=== PATIENT | female | born 1955 | race African-American/Black ===

== ENCOUNTER 2016-10-05 10:48 | Outpatient (CLI) | payer OTHER ==
[~2016-10-05] VITALS: Ht 172.8 cm; Wt 77.3 kg
[~2016-10-05 10:48] MED LIST: ALLEGRA30 MG PO; AMLODIPINE10 MG PO; AMOXICILLIN 50500 MG PO; ASPIRIN 81M81 MG/TA2 PO; B-12 250 MCG PO; BACTRIM DS 8001 TAB PO; CEPHALEXIN500 M1 PO; COZAAR 50MG50 MG/TAB PO; FEXOFENADINE180 MG PO; HCTZ; HCTZ 25MG25 MG PO; MULTIVITAMIN FO1 CAP PO; NATURAL E400 IU PO; NORVASC 10MG10 MG PO; NORVASC5 MG PO; PREDNISONE 5MG5 MG PO; SYNTHROID0.075 MG/T PO; THE MEDICINE S300 M1 PO; VITAMIN D1000 IU PO; VITAMIN E1000 U/CAP PO; ZYRTEC10 M1 PO; ZYRTEC5 M1 PO
[2016-10-05] MEDS ORDERED: ZYRTEC ALLERGY10 MG PO (11:07)
[2016-10-05] MEDS ORDERED: FLONASE NASAL S16 GM NS (11:07)
[2016-10-05 11:08] VITALS: BP 142/77; PULSE 114; TEMP 98
== END 2016-10-05 14:12 | disposition home or self-care (01) ==
LOC: EUO 10:48
DX: I63.9 Cerebral infarction, unspecified (principal)
CPT/HCPCS: C1764

== ENCOUNTER → 2017-07-01 | Outpatient (CLI) | payer OTHER ==
[~2017-07-01] MED LIST changes: +FLONASE NASAL S16 GM NS; +ZYRTEC ALLERGY10 MG PO
== END ==
LOC: MC.RAD 08:20
DX: Z12.31 Encounter for screening mammogram for malignant neoplasm of breast (principal)

== ENCOUNTER 2018-08-13 15:59 | Emergency (ER) | payer MEDICARE ==
[~2018-08-13] VITALS: Ht 170.2 cm; Wt 78.6 kg
[2018-08-13 16:10] VITALS: TEMP 98.8
[2018-08-13 16:55] LABS: BASO # 0.1 (0.0-0.2); EOS # 0.1 (0.0-0.7); GRAN # 2.7 (1.4-6.5); GRAN % 54.3 % (42.2-75.2); HEMATOCRIT 39.7 % (37.0-47.0); HEMOGLOBIN 13.5 g/dl (12.5-16.0); LYMPH # 1.9 (1.2-3.4); LYMPH % 36.9 % (20.0-51.0); MEAN CELL VOLUME 84 fl (80.0-100.0); MEAN CORPUSCULAR HEMOGLOBIN 28 pg (27.0-31.0); MEAN CORPUSCULAR HGB CONC 34 g/dl (33.0-37.0); MEAN PLATELET VOLUME 10.9 fl (7.4-10.4); MONO # 0.3 (0.1-0.6); MONO % 5.6 % (1.7-9.3); PLATELET COUNT 215 K/mm3 (130-400); RED BLOOD COUNT 4.75 M/mm3 (4.10-5.30); REDCELL DISTRIBUTION WIDTH-CV 13.3 % (11.5-14.5)
[2018-08-13 17:11] LABS: ALANINE AMINOTRANSFERASE 28 U/L (9-52); ALKALINE PHOSPHATASE 95 U/L (50-136); ANION GAP 9 mmol/L (7-16); AST,SGOT 38 U/L (15-37); BILIRUBIN,TOTAL 0.5 mg/dL (0.0-1.0); BLOOD UREA NITROGEN 8 mg/dL (7-17); CALCIUM 10.6 mg/dL (8.4-10.2); CARBON DIOXIDE 28 mmol/L (22-30); CHLORIDE 106 mmol/L (98-107); CREATININE, serum 0.51 mg/dL (0.52-1.25); GLUCOSE 127 mg/dL (74-106); POTASSIUM 3.4 mmol/L (3.4-5.0); SODIUM 143 mmol/L (137-145)
[2018-08-13 17:27] LABS: TROPONIN-I < 0.012 ng/mL (0.000-0.034)
[2018-08-13 17:35] VITALS: BP 161/95; PULSE 101
[2018-08-13 17:36] LABS: COLLECTION METHOD CLEAN CATCH
[2018-08-13 17:52] LABS: MUCOUS Present /lpf; PH 7 (5-8); SQUAMOUS EPITHELIAL 0-2 /hpf; URINE APPEARANCE Clear; URINE BACTERIA None Seen /hpf; URINE BILIRUBIN Negative (NEGATIVE); URINE BLOOD Negative (NEGATIVE); URINE COLOR Yellow; URINE GLUCOSE Negative (NEGATIVE); URINE KETONE Negative (NEGATIVE); URINE LEUKOCYTE ESTERASE Negative (NEGATIVE); URINE NITRATE Negative (NEGATIVE); URINE PROTEIN(semi-quant) 2+ (NEGATIVE); URINE RBC 0-2 /hpf; URINE UROBILINOGEN Negative (NEGATIVE)
== END 2018-08-13 17:49 | disposition home or self-care (01) ==
LOC: COL.ER 15:59
PROVIDERS: Nurse Practitioner
DX: I10 Essential (primary) hypertension (principal); E07.9 Disorder of thyroid, unspecified; Z79.82 Long term (current) use of aspirin; Z88.0 Allergy status to penicillin
CPT/HCPCS: J7030

== ENCOUNTER → 2018-09-09 | Outpatient (CLI) | payer MEDICARE, OTHER | LOC: MC.RAD 07:04 | DX: Z12.31 Encounter for screening mammogram for malignant neoplasm of breast (principal); Z98.82 Breast implant status ==

== ENCOUNTER → 2019-09-10 | Outpatient (CLI) | payer MEDICARE, OTHER | LOC: MC.RAD 07:21 | DX: Z12.31 Encounter for screening mammogram for malignant neoplasm of breast (principal); R92.8 Other abnormal and inconclusive findings on diagnostic imaging of breast ==

== ENCOUNTER → 2020-12-01 | Outpatient (CLI) | payer MEDICARE, OTHER | LOC: MC.RAD 07:28 | DX: Z12.31 Encounter for screening mammogram for malignant neoplasm of breast (principal); Z98.82 Breast implant status ==

== ENCOUNTER 2022-01-20 04:55 | Emergency (ER) | payer MEDICARE, OTHER ==
[~2022-01-20] VITALS: Ht 170.2 cm; Wt 79.5 kg
[2022-01-20 04:59] VITALS: BP 157/99; PULSE 107; TEMP 97.9
[2022-01-20] MEDS ORDERED: CEPHALEXIN500 M1 PO (05:38)
== END 2022-01-20 05:46 | disposition home or self-care (01) ==
LOC: COL.ER 04:55
DX: H00.034 Abscess of left upper eyelid (principal); Z88.1 Allergy status to other antibiotic agents; W22.8XXA Striking against or struck by other objects, initial encounter; Y92.096 Garden or yard of other non-institutional residence as the place of occurrence of the external cause

== ENCOUNTER → 2022-01-24 | Outpatient (CLI) | payer MEDICARE, OTHER | LOC: MC.RAD 07:37 | DX: Z12.31 Encounter for screening mammogram for malignant neoplasm of breast (principal) ==

== ENCOUNTER 2023-12-31 05:57 | Emergency (ER) | payer MEDICARE, OTHER ==
[~2023-12-31] VITALS: Ht 170.2 cm; Wt 76.4 kg
[2023-12-31] MEDS ORDERED: Ondansetron 4 MG/2 ML VIAL IV PRN ×2 (08:15→11:00)
[2023-12-31] MEDS ORDERED: LR 1,000 ML IV SCH (09:45)
[2023-12-31] MEDS ORDERED: Ketorolac 15 MG/ML VIAL IV PRN (11:00)
[2023-12-31] MEDS ORDERED: fentaNYL 50 MCG/ML 1 ML SYRINGE/VIAL [PACU/SDC ONLY] IV PRN (11:00)
[2023-12-31 11:11] VITALS: TEMP 97.2
[2023-12-31 11:24] VITALS: BP 147/70; PULSE 92
== END 2023-12-31 11:46 | disposition home or self-care (01) ==
LOC: COL.ER 05:57
DX: K56.699 Other intestinal obstruction unspecified as to partial versus complete obstruction (principal)
CPT/HCPCS: J7120

== ENCOUNTER → 2024-05-07 | Outpatient (CLI) | payer MEDICARE, OTHER | LOC: MC.RAD 08:40 | DX: Z12.31 Encounter for screening mammogram for malignant neoplasm of breast (principal) ==